=== PATIENT | female | born 1950 | race Caucasian/White ===

== ENCOUNTER → 2016-05-13 | Outpatient (CLI) | payer BC ==
[~2016-05-13] MED LIST: ATV/1 PO; CETI10TA10 PO; CITA20TA9 PO; ESTR1.252 PO; FRRG PO; LOSA100T2 PO; METO1TAB66 PO; MULTTAB58 PO; PRAM1.5T5 PO; PRLSR20 PO; TRAZ50TA35 PO; WARF1TAB PO; XPNIN; [UNRECOGNIZED DRUG - OTHER]; advair diskus
[2016-05-13 17:39] LABS: BASO % 0.8 %; BASO ABS # 0.07 K/uL (0-0.2); COMPLETE YES; EOS % 1.6 %; HEMATOCRIT 43.7 % (37-47); IG% 0.2 %; LYMPH % 37.7 %; LYMPH ABS # 3.38 K/uL (1.2-3.4); MEAN CELL VOLUME 89.7 fL (80-100); MEAN CORPUSCULAR HGB CONC 34.6 g/dl (32-36); MEAN PLATELET VOLUME 10.1 fL (7.4-10.4); MONO % 11.5 %; NEUT % 48.2 %; PLATELET COUNT 256 K/uL (130-400); RED BLOOD COUNT 4.87 M/uL (4.2-5.4); WHITE BLOOD COUNT 8.96 K/uL (4.8-10.8)
[2016-05-13 17:56] LABS: FERRITIN 280.6 ng/ml (8.0-388.0); THYROID STIMULATING HORMONE 1.51 uIu/ml (0.300-4.500)
== END | disposition home or self-care (01) ==
LOC: C.LABMFLN 08:18
PROVIDERS: ATTEND Psychiatry & Neurology Neurology
DX: G25.81 Restless legs syndrome (principal); R25.2 Cramp and spasm

== ENCOUNTER → 2016-06-25 | Outpatient (CLI) | payer BC ==
--- NOTE | 2016-06-25 11:50 | DIAGNOSTIC IMAGING REPORT ---
LUMBAR SPINE MRI HISTORY: MRI lumbar spine LUMBAR PAIN TECHNIQUE: Multiplanar multisequence MRI of the lumbar spine was performed without the use of contrast. COMPARISON: None. FINDINGS: For the purpose of the report the L5-S1 disc space will be located on axial image 27 of 30. Moderate generalized degenerative disc changes throughout. Multilevel bulging discs based on the sagittal images. Technically limited study due to patient body habitus L1-L2: Mild broad-based disc herniation. Mild impact anterior thecal sac. L2-L3: Mild broad-based bulging disc. Mild impact anterior thecal sac. Mild narrowing of the neuroforamina bilaterally L3-L4: Mild broad-based disc bulge. Minimal impact anterior thecal sac L4-L5: Mild broad-based disc herniation. Mild to moderate narrowing of the neuroforamina bilaterally L5-S1: Mild broad-based disc bulge. Minimal impact anterior thecal sac. Neuroforamina are patent bilaterally. IMPRESSION: 1. Limited study technically due to patient body habitus and mild motion artifact. 2. Mild/moderate bulging discs/mild disc herniations throughout virtually all levels of lumbar spine from L1 through L4. 3. No evidence for a high-grade component of spinal stenosis or major disc herniation Electronically signed by: Kendrick Weaver M.D. 06/25/2016 11:49 AM Dictated Date/Time: 06/25/2016 11:42 AM
== END | disposition home or self-care (01) ==
LOC: C.MRI 06-19 10:11 → C.OPENMRI 10:15
PROVIDERS: ATTEND Pain Medicine Interventional Pain Medicine
DX: M54.16 Radiculopathy, lumbar region (principal)

== ENCOUNTER → 2016-10-14 | Outpatient (CLI) | payer BC ==
[2016-10-14 14:33] LABS: HEMATOCRIT 41.8 % (37-47); MEAN CELL VOLUME 91.7 fL (80-100); MEAN CORPUSCULAR HEMOGLOBIN 30.9 pg (25-34); MEAN CORPUSCULAR HGB CONC 33.7 g/dl (32-36); MEAN PLATELET VOLUME 11.1 fL (7.4-10.4); PLATELET COUNT 210 K/uL (130-400); RED BLOOD COUNT 4.56 M/uL (4.2-5.4); WHITE BLOOD COUNT 5.21 K/uL (4.8-10.8)
[2016-10-14 14:36] LABS: COMPLETE YES; EOSINOPHIL % 3.5 %; LARGE GRANULAR LYMPH ABSOLUTE 0.87 K/uL; LARGE GRANULAR LYMPHOCYTE % 16.7 %; LYMPH ABS # 1.32 K/uL (1.2-3.4); LYMPHOCYTE % 25.4 %; NEUTROPHILS % 45.6 %
[2016-10-14 15:29] LABS: ALT/SGPT 37 U/L (12-78); AST/SGOT 25 U/L (15-37); BLOOD UREA NITROGEN 19 mg/dl (7-18); BUN/CREATININE RATIO 22.7 (10-20); CARBON DIOXIDE 28 mmol/L (21-32); CHLORIDE 103 mmol/L (98-107); CREATININE 0.82 mg/dl (0.60-1.20); GLUCOSE 95 mg/dl (70-99); POTASSIUM 4.1 mmol/L (3.5-5.1); SODIUM 139 mmol/L (136-145)
[2016-10-14 15:32] LABS: ALKALINE PHOSPHATASE 49 U/L (45-117); CHOLESTEROL 163 mg/dl (0-200); CHOLESTEROL/HDL RATIO 3.1; HDL CHOLESTEROL 53 mg/dl; LDL CHOLESTEROL CALCULATED 77 mg/dl; TRIGLYCERIDES 164 mg/dl (0-150); VERY LOW DENSITY LIPOPROT CALC 33 mg/dl
== END | disposition home or self-care (01) ==
LOC: C.LABSPEC 13:12
PROVIDERS: ATTEND Family Medicine
DX: I10 Essential (primary) hypertension (principal)

== ENCOUNTER → 2016-12-09 | Outpatient (CLI) | payer BC | END | disposition home or self-care (01) | LOC: C.PATHSPEC 13:20 | PROVIDERS: ATTEND Family Medicine | DX: R31.9 Hematuria, unspecified (principal) ==

== ENCOUNTER 2018-12-21 04:51 | Inpatient (IN) ==
--- NOTE | 2018-11-26 16:27 | PAT Medication Instructions ---
Medication Instructions Date of Service November 26, 2018 Home Medications Medications carbidopa-levodopa [Sinemet] 1 tab PO HS 06/14/18 [History Confirmed 11/23/18] celecoxib 200 mg PO QAM 06/14/18 [History Confirmed 11/23/18] fluticasone propion-salmeterol [Advair HFA] 2 puff INHALATION BID PRN 06/14/18 [History Confirmed 11/23/18] gabapentin 400 mg PO HS 06/14/18 [History Confirmed 11/23/18] losartan-hydrochlorothiazide 1 tab PO QAM 06/14/18 [History Confirmed 11/23/18] metoprolol tartrate 50 mg PO QAM 06/14/18 [History Confirmed 11/23/18] gaheqdtc-epwa-bxq-folic acid [One Daily For Women] 1 tab PO QAM 06/14/18 [History Confirmed 11/23/18] oxycodone-acetaminophen 1 tab PO DIRECTED PRN 06/14/18 [History Confirmed 11/23/18] trazodone 50 mg PO HS 06/14/18 [History Confirmed 11/23/18] albuterol sulfate [ProAir RespiClick] 2 inh INHALATION DAILY PRN 10/01/18 [History Confirmed 11/23/18] baclofen 20 mg PO HS 10/01/18 [History Confirmed 11/23/18] cholecalciferol (vitamin D3) [Vitamin D3] 2,000 unit PO QAM 10/01/18 [History Confirmed 11/23/18] lorazepam 1 mg PO BID 10/01/18 [History Confirmed 11/23/18] citalopram [Celexa] 20 mg PO QPM 11/23/18 [History Confirmed 11/23/18] levocetirizine [Xyzal] 5 mg PO QAM 11/23/18 [History Confirmed 11/23/18] ASK your surgeon for instructions celecoxib 200 mg PO QAM DO NOT take the morning of surgery losartan-hydrochlorothiazide 1 tab PO QAM One Daily For Women 1 tab PO QAM cholecalciferol (vitamin D3) [Vitamin D3] 2,000 unit PO QAM levocetirizine [Xyzal] 5 mg PO QAM Take morning of surgery With a small sip of water, OTHERWISE NOTHING TO EAT OR DRINK AFTER MIDNIGHT: fluticasone propion-salmeterol [Advair HFA] 2 puff INHALATION BID PRN (if needed) metoprolol tartrate 50 mg PO QAM oxycodone-acetaminophen 1 tab PO DIRECTED PRN (okay to take up to 4 hours prior to surgery if needed) albuterol sulfate [ProAir RespiClick] 2 inh INHALATION DAILY PRN (if needed) lorazepam 1 mg PO BID Take evening before surgery carbidopa-levodopa [Sinemet] 1 tab PO HS fluticasone propion-salmeterol [Advair HFA] 2 puff INHALATION BID PRN (if needed) gabapentin 400 mg PO HS oxycodone-acetaminophen 1 tab PO DIRECTED PRN (if needed) trazodone 50 mg PO HS albuterol sulfate [ProAir RespiClick] 2 inh INHALATION DAILY PRN (if needed) baclofen 20 mg PO HS lorazepam 1 mg PO BID citalopram [Celexa] 20 mg PO QPM Other Notes If you have any questions please call us at [phone] or [phone] or [phone] or [phone]
--- NOTE | 2018-11-30 08:35 | Anesthesiology Consultation ---
Date of Service November 30, 2018 Assessment & Plan (1) Encounter for pre-operative examination: -No records re: previous intubations. Chart Review Chart Review: Acceptable Risk for Surgery and Patient seen in Pre Admission Testing Consults Requested none Teaching & Discussion Pre-Anesthesia Teaching/Discussion Notes: Instructed NPO after midnight before surgery, except medications with 15 cc of water. Medication instructions provided according to the PAT guidelines. History Surgery Operation Date: 12/21/18 07:00 Proposed Procedures p Left Total Knee Arthroplasty - Noe Hughes MD Height/Weight Height: 5 ft 9.5 in Weight: 124.9 kg Allergies Allergy/AdvReac Type Severity Reaction Status Date / Time propoxyphene Allergy Severe FACE SWELLS Verified 11/23/18 07:54 Sulfa (Sulfonamide Allergy Severe Shortness Verified 11/23/18 07:54 Antibiotics) Of Breath adhesive Allergy Mild ADHESIVE Verified 11/23/18 07:54 TAPES-RED RASH-SOME TAPES OKAY amoxicillin Allergy Mild RASH Verified 11/23/18 07:54 oxaprozin Allergy Mild RASH Verified 11/23/18 07:54 nitrofurantoin AdvReac gi upsets Verified 11/23/18 08:08 [From Macrobid] Medications Home Medications Medication Instructions Recorded Confirmed Last Taken carbidopa-levodopa [Sinemet] 1 tab PO HS 06/14/18 11/23/18 09/30/18 celecoxib 200 mg PO QAM 06/14/18 11/23/18 10/01/18 fluticasone propion-salmeterol 2 puff INHALATION BID PRN 06/14/18 11/23/18 Unknown [Advair HFA] gabapentin 400 mg PO HS 06/14/18 11/23/18 09/30/18 losartan-hydrochlorothiazide 1 tab PO QAM 06/14/18 11/23/18 10/01/18 metoprolol tartrate 50 mg PO QAM 06/14/18 11/23/18 10/01/18 vgredwno-elxi-lom-folic acid [One 1 tab PO QAM 06/14/18 11/23/18 10/01/18 Daily For Women] oxycodone-acetaminophen 1 tab PO DIRECTED PRN 06/14/18 11/23/18 Unknown trazodone 50 mg PO HS 06/14/18 11/23/18 09/30/18 albuterol sulfate [ProAir 2 inh INHALATION DAILY PRN 10/01/18 11/23/18 Unknown RespiClick] baclofen 20 mg PO HS 10/01/18 11/23/18 09/30/18 cholecalciferol (vitamin D3) 2,000 unit PO QAM 10/01/18 11/23/18 10/01/18 [Vitamin D3] lorazepam 1 mg PO BID 10/01/18 11/23/18 10/01/18 citalopram [Celexa] 20 mg PO QPM 11/23/18 11/23/18 Unknown levocetirizine [Xyzal] 5 mg PO QAM 11/23/18 11/23/18 Unknown Past Medical History Medical History Anxiety Depression Environmental allergies Hypertension Osteoarthritis Restless leg syndrome Exercise / Class Metabolic Activity II 4-5 Yardwork/Stairs/Walk up hill (Gardening all day. Has trouble sitting for long. Able to climb FOS. Denies CP or SOB. ) Past Surgical History Surgical History History of colonoscopy History of laparoscopy for tubal History of total right knee replacement Hx of Achilles tendon repair left Hx of cholecystectomy also took appendix Hx of meniscectomy of right knee Hx of total hysterectomy Hx of tubal ligation Past Anesthesia History No Hx of Anesthesia Complications and No Family Hx of Anesthesia Complications History of PONV No Hx of PONV and No Hx of Motion Sickness Social History Smoking Status: Former smoker Do You Dip or Chew Tobacco: No Smoking End Date: 18 YR AGO Hx Alcohol Use: No Hx Substance Use: No Review of Systems Patient denies chest pain, shortness of breath, dyspnea on exertion, reflux, cough, palpitations. +Joint Pain (Knee, Shoulder) +Wheezing (only when seasonal allergies are acting up) Physical Exam Vital Signs BP: 149/90 P: 56 R: 16 T: 97.8 SPO2: 98% on RA Constitutional + obese ENMT Thyromental Distance: > or= 3.5 Finger Breadths (3.5) Mallampati Class: I Neck normal visual inspection and trachea midline; neck extension not limited Respiratory normal respiratory effort Auscultation: lungs clear to auscultation bilaterally Cardiovascular Rate/Rhythm: regular rate and regular rhythm Heart Sounds: no murmur Vessels: no carotid bruit Neurologic moves all extremities Psychiatric Orientation: alert and oriented x 3 Testing Laboratory Results PT 10.3 Seconds (9.0-12.0) 11/30/18 08:50 INR 1.0 (0.9-1.1) 11/30/18 08:50 APTT 26.8 Seconds (21.0-31.0) 11/30/18 08:50 Blood Type A Negative 11/30/18 08:50 Antibody Screen NEGATIVE 11/30/18 08:50 [facility] 10/22/18 WBC: 5.75 H/H: 14.6/41.7 PLATELETS: 224 SODIUM: 21 POTASSIUM:4.0 CHLORIDE: 103 CO2: 28 BUN: 17 CREATININE: 0.97 GLUCOSE: 104 Electrocardiogram Date: 11/30/18 Findings: + SB @ (56) Chest X-Ray Date: 11/30/18 Findings: + NAD FINDINGS: The bones soft tissues and hemidiaphragms are normal. The cardiomediastinal silhouette is normal. The lungs are clear. The pulmonary vasculature is normal. IMPRESSION: Negative chest.
--- NOTE | 2018-11-30 09:19 | XRay Report ---
XR chest Pre-admission PA/Lat CLINICAL HISTORY: pat preoperative evaluation COMPARISON STUDY: 11/17/2013 FINDINGS: The bones soft tissues and hemidiaphragms are normal. The cardiomediastinal silhouette is n ormal. The lungs are clear. The pulmonary vasculature is normal. IMPRESSION: Negative chest. The above report was generated using voice recognition software. It may contain grammatical, syntax or spelling errors. Electronically signed by: Kendrick Weaver M.D. 11/30/2018 9:18 AM
[2018-11-30 10:51] LABS: Partial Thromboplastin Time 26.8 Seconds (21.0-31.0); Prothrombin Time 10.3 Seconds (9.0-12.0)
--- NOTE | 2018-12-18 08:18 | History and Physical Report ---
DATE OF ADMISSION: 12/21/2018 CHIEF COMPLAINT: Persistent left knee pain and discomfort. HISTORY OF PRESENT ILLNESS: The patient is a 68-year-old female who now presents for surgical treatment of her left knee. She had a long history of knee problems and knee arthritis. She underwent a right knee replacement about 5 years ago and has done extremely well from this. She continues to be bothered by left knee pain and discomfort. We have been treating her with injections every 3 months for the past 5 years. This became less successful. She describes global pain in her knee. The more she walks, the more it hurts. The shots only helped for a couple weeks. Pain is bothering her at nighttime. It is affecting her quality of life and she would like to have her left knee replaced. PAST MEDICAL HISTORY: 1. Hypertension. 2. Anxiety. 3. Obesity with a BMI of 40. 4. Low back pain/sciatica. PAST SURGICAL HISTORY: Previous surgeries include: 1. Right knee replacement done in November of 2013. 2. Hysterectomy. 3. Tubal ligation. 4. Cholecystectomy. ALLERGIES: 1. DARVON. 2. AMOXICILLIN WHICH CAUSED HIVES. No respiratory problems. 3. SULFA. 4. ADHESIVE TAPE. CURRENT MEDICINES: 1. Albuterol. 2. Baclofen. 3. Carbidopa-levodopa/Sinemet. 4. Celebrex. 5. Vitamin D3. 6. Celexa. 7. Estrogen once a day. 8. Fluticasone. 9. Gabapentin 400 mg at nighttime. 10. Levocetirizine 5 mg a day. 11. Lorazepam 1 mg twice daily. 12. Losartan/hydrochlorothiazide 100/12.5 once a day. 13. Metoprolol 50 mg daily. 14. Multivitamin. 15. Bupropion. 16. Percocet p.r.n. 17. Rotigotine transdermal patch. 18. Trazodone 50 mg p.o. at bedtime. SOCIAL HISTORY: A 68-year-old female. She is from [place]. She does not smoke. No significant alcohol intake. FAMILY HISTORY: Noncontributory. REVIEW OF HISTORY: Negative for diabetes, neurologic problems, vascular problems or bleeding disorders. No chest pain or shortness of breath. No history of DVT or PE. No bleeding problems. PHYSICAL EXAMINATION: GENERAL: Physical examination shows a pleasant, healthy appearing, middle-aged female. HEENT: Benign. NECK: Supple, no lymphadenopathy. LUNGS: Clear to auscultation. HEART: Regular rate and rhythm. ABDOMEN: Soft, nontender, nondistended. EXTREMITIES: Grossly neurovascularly intact except as follows: Examination of both knees reveals the patient walks independently. Examination of the right knee reveals well-healed incision. Range of motion 0-120. Good straight leg raise. No significant swelling. Examination of the left knee reveals the patient walks with a bit of a limp on this side. She has got varus alignment to her knee. Small knee effusion. Moderate to large soft tissue envelope. Range of motion is 5 degrees short of full extension to 120 degrees of flexion. There is no gross instability. No pain with hip motion. She is neurologically intact. X-RAYS: X-rays of the left knee reviewed. It shows advanced left knee tricompartment DJD. She has extensive disease in all 3 compartments, most severe in the medial side. She has got osteophytes both medially and laterally. ASSESSMENT: A 68-year-old white female, 5 years out from right knee replacement with advanced left knee degenerative joint disease. She has failed conservative treatment and would like to have her left knee replaced. PLAN: We are going to take her to the operating room and do a left total knee replacement. The risks and benefits of this procedure were explained to the patient including but not limited to DVT, PE, , infection, neurological injury, vascular injury, bleeding problem, pain, limited range of motion, stiffness, failure to relieve her symptoms, incomplete relief of symptoms, need for further surgery in future, fracture, leg length inequality, nerve palsy, etc. The patient understands and desires to proceed. Informed consent was obtained. We talked about taking her metoprolol the morning of surgery. She is planning to be discharged home using [facility] home health program. She describes AN ALLERGY TO PENICILLIN, but has had Ancef before and has done okay. We will give her Ancef preoperatively. We will plan on DVT prophylaxis including thigh-high TEDs, SCDs, and aspirin twice a day.
[2018-12-21] MEDS ORDERED: METOCLOPRAMIDE HCL 10 MG TABLET PO SCH (06:00)
[2018-12-21] MEDS ORDERED: CEFAZOLIN 3000MG 72.5 ML IV SCH (06:00)
[2018-12-21] MEDS ORDERED: LR 500ML BOLUS, THEN 15ML/HR IV SCH (06:00)
[2018-12-21] MEDS ORDERED: GABAPENTIN 600 MG DOSE PO SCH (06:00)
[2018-12-21] MEDS ORDERED: FAMOTIDINE 20 MG TAB PO SCH (06:00)
[2018-12-21] MEDS ORDERED: ACETAMINOPHEN 500 MG TAB PO SCH (06:00)
[2018-12-21] MEDS ORDERED: SCOPOLAMINE 1.5 MG TDSY TD SCH (06:00)
[2018-12-21] MEDS ORDERED: LR 60ML/HR IV SCH (06:00)
[2018-12-21] MEDS ORDERED: BUPIVACAINE LIPOSOME/PF 266 MG, BUPIVACAINE/EPINEPHRINE 50 ML, SODIUM CHLORIDE 0.9% 30 ... INFIL SCH (06:00)
[2018-12-21] MEDS ORDERED: fentaNYL citrate 100 MCG/2 ML VIAL ONE (06:25)
[2018-12-21] MEDS ORDERED: MIDAZOLAM HCL 1 MG/ML 2ML VIAL ONE ×3 (06:25→07:04)
[2018-12-21] MEDS ORDERED: TRANEXAMIC ACID 1,000 MG **IV Intra-op IV SCH (06:30)
[2018-12-21] MEDS ORDERED: SODIUM CHLORIDE 0.9% PF 50 ML VIAL ONE (06:33)
[2018-12-21] MEDS ORDERED: ROPIVACAINE 0.5% 5 MG/ML 30 ML VIAL ONE (06:33)
[2018-12-21] MEDS ORDERED: BUPIVACAINE 0.25% 30 ML VIAL ONE (06:33)
[2018-12-21] MEDS ORDERED: BACITRACIN INJ 50,000 UNIT VIAL ONE (06:33)
[2018-12-21] MEDS ORDERED: BUPIVACAINE 0.5 % 5 MG/1 ML PF 10ML VIAL ONE (06:33)
[2018-12-21] MEDS ORDERED: BUPIVACAINE LIPOSOME 1.3% 266 MG/20 ML VIAL ONE (06:33)
[2018-12-21] MEDS ORDERED: EPINEPHrine INJ 1 MG/ML AMP ONE (06:34)
--- NOTE | 2018-12-21 06:50 | History & Physical Bridge Note ---
Date of Service December 21, 2018 History & Physical Bridge Note I have examined the patient, reviewed the History & Physical and in the interval since the performance of the History & Physical I have noted the following changes of clinical significance: no changes noted
[2018-12-21] MEDS ORDERED: ePHEDrine sulfate 50 MG/ML AMP IV PRN (07:05)
[2018-12-21] MEDS ORDERED: ATROPINE SULFATE 0.1 MG/ML 10ML SYR IV PRN (07:05)
[2018-12-21] MEDS ORDERED: PROPOFOL IV EMULSION 10 MG/ML 20 ML VIAL IV ONE (07:08)
[2018-12-21] MEDS ORDERED: PHENYLEPHRINE HCL 10 MG/ML VIAL ONE (07:34)
--- NOTE | 2018-12-21 08:40 | Post Operative Brief Note ---
PG Immediate Post Op with CF Date of Surgery December 21, 2018 Pre & Post Diagnosis Operation Date: 12/21/18 07:00 Pre-Op Diagnosis: Left Knee Advanced Degenerative Joint Disease Post-Op Diagnosis: Left Knee Advanced Degenerative Joint Disease Procedure Operation Date: 12/21/18 07:00 Actual Procedures p Left Total Knee Arthroplasty(Left) - Noe Hughes MD Surgeon Noe Hughes MD Adolescent Medicine Specialist Stacey, PAC Estimated Blood Loss 50 Findings Consistent with Post-Op Diagnosis Fluids 1500 cc Specimens Specimen Description: A. Left Knee Bone and Tissue Drains Guevara Catheter (A 16 Stateless guevara catheter was inserted by JOSEFA Redmond, with assist of OR staff and Anesthesia without difficulty, clear yellow urine obtained, output to be monitored by Anesthesia.) Anesthesia Type Spinal MAC Complications none Disposition Accompanied Patient To Recovery: No Disposition: Recovery Room
--- NOTE | 2018-12-21 09:03 | XRay Report ---
XR knee LT 2V routine CLINICAL HISTORY: Surgical Post Op COMPARISON: 09/27/2018 DISCUSSION: There are postsurgical changes of a total left knee arthroplasty, and patellar resurfacin g. The femoral and tibial components appear well seated. There are overlying skin violeta. There is a ir within soft tissues consistent with recent surgery. IMPRESSION: Postsurgical changes of a total left knee arthroplasty. Electronically signed by: Tan Calderón M.D. 12/21/2018 9:01 AM
--- NOTE | 2018-12-21 09:04 | Operative Report ---
DATE OF OPERATION: 12/21/2018 SURGEON: Noe Hughes MD PAINT SPRAYER SANDBLASTER: JOSEFA Green PREOPERATIVE DIAGNOSIS: Left knee degenerative joint disease. POSTOPERATIVE DIAGNOSIS: Left knee degenerative joint disease. PROCEDURE PERFORMED: Left cemented posterior stabilized total knee arthroplasty. COMPLICATIONS: None. ESTIMATED BLOOD LOSS: 50 mL. FLUID REPLACEMENT: 1500 mL crystalloid fluid replacement. TOURNIQUET TIME: 57 minutes at 300 mmHg. ANESTHESIA: Spinal with adductor canal block. DRAINS: None. SPECIMENS: Left knee sent for pathology. OPERATIVE INDICATIONS: The patient is a 68-year-old female who has had a long history of knee problems. She underwent a right knee replacement 5 years ago. I have been treating her conservatively over the past 5 years with injections and medicines. This became less successful over time. The patient elected to proceed with total knee arthroplasty. OPERATIVE FINDINGS: Operative findings revealed advanced left knee DJD. She had extensive grade 4 dahi-zu-bhzs disease of the medial as well as patellofemoral compartments. She had varus deformity to her knee with large knee joint effusion. OPERATIVE IMPLANTS: Operative implants consisted of: 1. A Biomet Vanguard size 65 left posterior stabilized femoral component. 2. A Biomet size 71 tibial tray. 3. A 10 mm posterior stabilized polyethylene insert. 4. A 31 x 8 all poly patella. OPERATIVE PROCEDURE: The patient was taken to the operating room, identified and placed on the operating table in supine position. All contact areas were appropriately padded. IV antibiotics provided by anesthesia team. Spinal anesthetic and adductor canal block had been provided in the holding area. Devries catheter was placed in sterile fashion. Left thigh tourniquet was then placed and left lower extremity was then prepped and draped in usual sterile fashion. Left leg was elevated and exsanguinated with an Esmarch and tourniquet was placed at 300 mmHg. An anterior approach to the left knee was then performed through a longitudinal incision centered over the patella. Sharp dissection was carried through subcutaneous tissues down to the level of the extensor mechanism. A medial parapatellar arthrotomy incision was made. Some subperiosteal dissection was carried out medially. The fat pad resected from beneath the patellar tendon. The lateral patellofemoral ligament was released. The patella was everted and knee was flexed. The osteophytes were taken off the distal femur. The ACL and PCL were then released from the distal femur and the tibia subluxated anteriorly. External tibial alignment jig was then placed in the anterior face of the tibia and adjusted 16 mm medially. Proximal tibial cut was made to remove about a millimeter of bone from the most deficient aspect of the medial tibial plateau. Some osteophytes were taken off medial and posteromedially. Tibia sized to a size 71. Attention was then drawn to the femur. The distal femur was entered with a sharp drill. Intramedullary canal was suctioned. A left 5-degree valgus cutting guide was placed. Distal femoral cutting block was pinned in place. Distal femoral cut was made to take an additional 3 mm of bone off the distal femur. The femur was then sized to a size 65. We did downsize this slightly. The AP cutting block was pinned parallel to the epicondylar axis, which was 5 degrees of external rotation. The anterior cut, anterior chamfer, posterior cut, posterior chamfer cuts were made. Box cutting guide was placed and adjusted slightly lateral and box cut was made. The knee was flexed. The remnants of the medial and lateral menisci were excised. The osteophytes were taken off the posterior aspect of the femur. Trial femoral component was placed. Tibial tray was pinned in maximum external rotation, and the drill and stem punch were used to create defect in proximal tibia for the tibial tray. The knee was then trialed and a 10 mm insert fit most appropriately. Attention was then drawn to patella. The patella was cleaned of all soft tissues. Patella thickness measured 24 mm in thickness, it was cut down to about 15. It was sized to a size 31 patella. Lug holes were drilled for 31 patella. Lateral osteophyte was removed. Patella button was placed. Knee was taken through range of motion, patella tracked nicely with no thumbs test. Attention was then drawn toward placement of permanent components. All trial components were removed. Bone plug was placed in distal femur to limit blood loss. A double batch of Palacos G cement was mixed. A Biomet Vanguard size 65 left posterior stabilized femoral component, size 71 tibial tray, a 10 mm posterior stabilized polyethylene insert, and a 31 x 8 all poly patella then cemented in place. Knee was brought down to full extension until cement hardened. A final cement check was then performed. Pericapsular tissues were injected with a total of 100 mL of combination of 20 mL of Exparel, 30 mL of normal saline, 50 mL of 0.25% Marcaine with epinephrine. The patient did receive 1 gram of tranexamic acid. The tourniquet was then let down for final tourniquet time of 57 minutes. Hemostasis was assured with use of electrocautery. The wound was once again irrigated. The extensor mechanism was then closed with combination of #1 PDS suture and #1 Vicryl suture in a [id number] fashion. Extensor mechanism was checked and found to be intact. The subcutaneous tissue was then closed with #2 Dexon suture in a buried interrupted fashion. Skin was closed with skin violeta. Leg was then cleaned, dried and a sterile dressing of Xeroform, 4 x 4, sterile cast padding and Saravanan bandage were applied. The patient was then transferred to the recovery room in stable condition. The patient tolerated the procedure well with no complication. All needle and sponge counts were correct at the end of the operation. I attest to the content of the Intraoperative Record and any orders documented therein. Any exception s are noted below.
--- NOTE | 2018-12-21 09:34 | Anesthesiology Progress Note ---
Date of Service December 21, 2018 Anesthesia Post Procedure Vital Signs Vital Signs: Temp Pulse Pulse Resp BP Pulse Ox 12/21/18 09:25 56 L 14 152/90 H 98 12/21/18 09:15 63 13 144/78 H 98 12/21/18 09:05 64 12 113/70 97 12/21/18 08:55 59 L 16 129/73 98 12/21/18 08:46 36.7 C 62 20 108/65 98 12/21/18 05:52 36.6 C 66 20 153/86 H 95 Transfer of Care Handoff Completed per policy Notes Mental Status: alert / awake / arousable and participated in evaluation Patient Amnestic to Procedure: Yes Nausea / Vomiting: adequately controlled Pain: adequately controlled Airway Patency, RR, SpO2: stable & adequate BP & HR: stable & adequate Hydration State: stable & adequate Neuraxial Anesthesia: was administered and sensory block is resolving Anesthetic Complications: no major complications apparent
[2018-12-21] MEDS ORDERED: METOCLOPRAMIDE HCL INJ 5 MG/ML 2 ML VIAL IV PRN (10:29)
[2018-12-21] MEDS ORDERED: ALUMINUM/MAGNESIUM SUSP 30 ML UDC PO PRN (10:29)
[2018-12-21] MEDS ORDERED: MULTIVITAMIN TAB PO SCH (10:29)
[2018-12-21] MEDS ORDERED: MAGNESIUM HYDROXIDE SUSP 30 ML UDC PO PRN (10:29)
[2018-12-21] MEDS ORDERED: ALBUTEROL HFA 8 GM INHALER INH SCH (10:29)
[2018-12-21] MEDS ORDERED: HYDROmorphone INJ 0.5 MG/0.5 ML SYR IV PRN (10:29)
[2018-12-21] MEDS ORDERED: BISACODYL 10 MG SUPP PR PRN (10:29)
[2018-12-21] MEDS ORDERED: ONDANSETRON INJ 2 MG/ML 2 ML VIAL IV PRN (10:29)
[2018-12-21] MEDS ORDERED: NALOXONE HCL 0.4 MG/1 ML VIAL/CARP IV PRN (10:29)
[2018-12-21] MEDS ORDERED: ALBUTEROL HFA INHALER 8.5 GM INH PRN (10:45)
[2018-12-21] MEDS: SODIUM CHLORIDE 0.9% 1000ML 1,000 ML IV SCH ×2 (11:04→19:02)
[2018-12-21] MEDS: DOCUSATE SODIUM 100 MG CAP PO SCH ×2 (11:05→20:49)
[2018-12-21] MEDS: LORazepam 1 MG TAB PO SCH ×2 (11:06→20:49)
[2018-12-21] MEDS: LOSARTAN/HCTZ 50/12.5MG TAB PO SCH (11:06)
[2018-12-21] MEDS: METOPROLOL TARTRATE 50 MG TAB PO SCH (11:06)
[2018-12-21] MEDS: MULTIVITAMIN TAB PO SCH (11:06)
[2018-12-21] MEDS: KETOROLAC TROMETHAMINE 15 MG/ML VIAL IV SCH ×3 (11:07→22:13)
[2018-12-21] MEDS: CHOLECALCIFEROL 1,000 UNITS TAB PO SCH (11:08)
[2018-12-21] MEDS: TAPENTADOL HCL ER 50 MG TABCR PO SCH ×2 (11:15→20:50)
[2018-12-21] MEDS: ASPIRIN 81 MG ECTAB PO SCH ×2 (11:31→20:49)
[2018-12-21] MEDS: ACETAMINOPHEN 500 MG TAB PO SCH ×2 (13:34→21:15)
[2018-12-21] MEDS ORDERED: TRANEXAMIC ACID 1,000 MG in 0.9 % SODIUM CHLORIDE 100 ML IV SCH (14:45)
[2018-12-21] MEDS: CEFAZOLIN 2000MG 2,000 MG/15 ML SYR IV SCH ×2 (15:03→22:12)
[2018-12-21] MEDS: CHECK SCOPOLAMINE PATCH PLACEMENT SCH (15:42)
[2018-12-21] MEDS ORDERED: ADVAIR INH PRN (15:55)
[2018-12-21] MEDS: ASCORBIC ACID 500 MG TAB PO SCH (16:50)
[2018-12-21] MEDS: FERROUS GLUCONATE 324 MG TAB PO SCH (16:50)
[2018-12-21] MEDS: GABAPENTIN 400 MG CAP PO SCH (20:49)
[2018-12-21] MEDS: TRAZODONE HCL 50 MG TAB PO SCH (20:49)
[2018-12-21] MEDS: SENNA 8.6 MG TAB PO SCH (20:49)
[2018-12-21] MEDS: CARBIDOPA/LEVODOPA 25-250 1 EA TAB PO SCH (20:49)
[2018-12-21] MEDS: CITALOPRAM 20 MG TAB PO SCH (20:49)
--- NOTE | 2018-12-21 20:49 | Progress Note ---
DATE: 12/21/2018 SUBJECTIVE: A 68-year-old white female postop from a left knee replacement. She is doing well. She just has a little bit of pain. Got some pain medicine and doing better. No chest pain or shortness of breath. Not feeling dizzy or lightheaded. OBJECTIVE: VITAL SIGNS: Temperature is 36.6. Vital signs stable. GENERAL: A pleasant middle-aged female sitting up in her bedside chair, looks comfortable. LUNGS: Clear to auscultation. HEART: Has regular rate and rhythm. ABDOMEN: Soft, nontender, nondistended. EXTREMITIES: Grossly neurovascularly intact except as follows: Examination of the left lower extremity reveals the dressing to be clean, dry and intact. She can dorsiflex and plantarflex her foot appropriately. She is neurologically intact. She can do a straight leg raise. X-RAYS: X-ray of the left knee from recovery room is reviewed. It shows a cemented posterior stabilized total knee arthroplasty. Components looked to be in good position. No signs of problems. ASSESSMENT: A 68-year-old white female postoperative from a left knee replacement, doing well. Pain is controlled. She is neurologically intact. PLAN: 1. DVT prophylaxis including thigh-high TEDs, SCDs, and aspirin twice a day. 2. PT/OT. Weight bear as tolerated. Left total knee protocol. 3. Pain control, doing well with current pain regimen. 4. IV antibiotics x24 hours. 5. Disposition: Plan to discharge to home with some home health once adequately recovered and medically stable.
[2018-12-21] MEDS: BACLOFEN 20 MG TAB PO SCH (20:50)
[2018-12-22] MEDS: CHECK SCOPOLAMINE PATCH PLACEMENT SCH (00:13)
[2018-12-22] MEDS: KETOROLAC TROMETHAMINE 15 MG/ML VIAL IV SCH ×4 (04:26→21:52)
[2018-12-22] MEDS: ACETAMINOPHEN 500 MG TAB PO SCH ×3 (05:44→21:52)
[2018-12-22 05:50] LABS: Hematocrit (blood only) 36.3 % (37-47); Hemoglobin 12.1 g/dL (12.0-16.0); Mean Corpuscular Hemoglobin 29.7 pg (25-34); Mean Corpuscular Hgb Conc 33.3 g/dL (32-36); Mean Corpuscular Volume 89.2 fL (80-100); Mean Platelet Volume 10.4 fL (7.4-10.4); Platelet Count 175 K/uL (130-400); RDW Coefficient of Variation 14.3 % (11.5-14.5); RDW Standard Deviation 47.2 fL (36.4-46.3); Red Blood Count 4.07 M/uL (4.2-5.4); White Blood Count 7.85 K/uL (4.8-10.8)
[2018-12-22 06:22] LABS: BUN Creatinine Ratio 15.3 (10-20); Calcium 8.2 mg/dl (8.5-10.1); Creatinine Clr Calc Pharmacy 85.6 ml/min; Est GFR (African American) 75.7; Est GFR (Non-African American) 65.3; Potassium 3.7 mmol/L (3.5-5.1)
--- NOTE | 2018-12-22 08:21 | Anesthesiology Progress Note ---
Date of Service December 22, 2018 Anesthesia Post Procedure Vital Signs Vital Signs: Temp Pulse Pulse Pulse Pulse Resp BP 12/22/18 07:36 37.2 C 71 18 12/22/18 04:00 36.6 C 64 18 138/75 12/21/18 23:23 37.5 C 68 18 151/82 H 12/21/18 19:10 36.6 C 59 L 18 12/21/18 12:53 36.4 C L 56 L 16 12/21/18 11:55 36.2 C L 56 L 16 126/81 12/21/18 10:59 50 L 16 136/69 12/21/18 10:25 50 L 16 151/65 H 12/21/18 09:55 36.4 C L 53 L 16 12/21/18 09:35 36.1 C L 53 L 17 143/83 H 12/21/18 09:25 56 L 14 152/90 H 12/21/18 09:15 63 13 144/78 H 12/21/18 09:05 64 12 113/70 12/21/18 08:55 59 L 16 129/73 12/21/18 08:46 36.7 C 62 20 108/65 BP Pulse Ox 12/22/18 07:36 133/80 91 12/22/18 04:00 94 12/21/18 23:23 94 12/21/18 19:10 137/83 96 12/21/18 12:53 126/77 95 12/21/18 11:55 96 12/21/18 10:59 100 12/21/18 10:25 99 12/21/18 09:55 145/83 H 99 12/21/18 09:35 99 12/21/18 09:25 98 12/21/18 09:15 98 12/21/18 09:05 97 12/21/18 08:55 98 12/21/18 08:46 98 Pain Intensity Left Knee: Pain Intensity: 1 Notes Mental Status: alert / awake / arousable and participated in evaluation Patient Amnestic to Procedure: Yes Nausea / Vomiting: adequately controlled Pain: adequately controlled Airway Patency, RR, SpO2: stable & adequate BP & HR: stable & adequate Hydration State: stable & adequate Neuraxial Anesthesia: was administered and sensory block resolved Anesthetic Complications: no major complications apparent and Pt Satisfied with anesthetic care
[2018-12-22] MEDS: FERROUS GLUCONATE 324 MG TAB PO SCH ×2 (08:23→17:58)
[2018-12-22] MEDS: DOCUSATE SODIUM 100 MG CAP PO SCH ×2 (08:24→21:51)
[2018-12-22] MEDS: ASCORBIC ACID 500 MG TAB PO SCH ×2 (08:24→17:58)
[2018-12-22] MEDS: LORazepam 1 MG TAB PO SCH ×2 (08:24→21:51)
[2018-12-22] MEDS: ASPIRIN 81 MG ECTAB PO SCH ×2 (08:25→21:51)
[2018-12-22] MEDS: LOSARTAN/HCTZ 50/12.5MG TAB PO SCH (08:25)
[2018-12-22] MEDS: TAPENTADOL HCL ER 50 MG TABCR PO SCH ×2 (08:25→21:51)
[2018-12-22] MEDS: MULTIVITAMIN TAB PO SCH (08:25)
[2018-12-22] MEDS: METOPROLOL TARTRATE 50 MG TAB PO SCH (08:25)
[2018-12-22] MEDS: CHOLECALCIFEROL 1,000 UNITS TAB PO SCH (08:26)
--- NOTE | 2018-12-22 08:37 | Progress Note ---
DATE: 12/22/2018 SUBJECTIVE: A 68-year-old white female postop day 1 from a left knee replacement. She is doing pretty well. A little bit more pain last night, but got some pain medicine, doing better this morning. No chest pain or shortness of breath. Not feeling dizzy or lightheaded. OBJECTIVE: VITAL SIGNS: Temperature 37.2. Vital signs stable. GENERAL: Shows a pleasant, middle-aged female. She is sitting up in bed and just about to start breakfast. She looks comfortable. EXTREMITIES: Examination of the left leg reveals the leg to be well aligned. Dressing is clean, dry and intact. She can dorsiflex and plantarflex her foot appropriately. She is neurologically intact. LABORATORY DATA: Hemoglobin 12.1. Hematocrit 36.3. Electrolytes are stable. ASSESSMENT: A 68-year-old white female postoperative day 1 from left knee replacement, doing pretty well. Pain is controlled. She is neurologically intact. PLAN: 1. DVT prophylaxis including thigh-high TEDs, SCDs, and aspirin twice a day. 2. PT/OT. Weight bear as tolerated. Left total knee protocol. 3. Pain control, doing pretty well with current pain regimen. 4. Disposition: She is planning to be discharged home with some home health once adequately recovered and medically stable.
[2018-12-22] MEDS: OXYCODONE HCL IR 5 MG TAB (IMMEDIATE RELEASE) PO PRN (10:55)
[2018-12-22] MEDS: CARBIDOPA/LEVODOPA 25-250 1 EA TAB PO SCH (19:17)
[2018-12-22] MEDS: TRAZODONE HCL 50 MG TAB PO SCH (21:51)
[2018-12-22] MEDS: GABAPENTIN 400 MG CAP PO SCH (21:51)
[2018-12-22] MEDS: CITALOPRAM 20 MG TAB PO SCH (21:51)
[2018-12-22] MEDS: BACLOFEN 20 MG TAB PO SCH (21:51)
[2018-12-22] MEDS: SENNA 8.6 MG TAB PO SCH (21:52)
[2018-12-23] MEDS: OXYCODONE HCL IR 5 MG TAB (IMMEDIATE RELEASE) PO PRN ×2 (03:52→10:12)
[2018-12-23] MEDS: ACETAMINOPHEN 500 MG TAB PO SCH (05:57)
[2018-12-23] MEDS: KETOROLAC TROMETHAMINE 15 MG/ML VIAL IV SCH (05:58)
[2018-12-23 06:40] VITALS: BP 123/75; PULSE 68; TEMP 98.4; O2SAT 91
[2018-12-23] MEDS: ASPIRIN 81 MG ECTAB PO SCH (07:56)
[2018-12-23] MEDS: DOCUSATE SODIUM 100 MG CAP PO SCH (07:56)
[2018-12-23] MEDS: ASCORBIC ACID 500 MG TAB PO SCH (07:56)
[2018-12-23] MEDS: FERROUS GLUCONATE 324 MG TAB PO SCH (07:56)
[2018-12-23] MEDS: METOPROLOL TARTRATE 50 MG TAB PO SCH (07:57)
[2018-12-23] MEDS: MULTIVITAMIN TAB PO SCH (07:57)
[2018-12-23] MEDS: LOSARTAN/HCTZ 50/12.5MG TAB PO SCH (07:57)
[2018-12-23] MEDS: CHOLECALCIFEROL 1,000 UNITS TAB PO SCH (07:58)
[2018-12-23] MEDS: LORazepam 1 MG TAB PO SCH (08:00)
[2018-12-23] MEDS: TAPENTADOL HCL ER 50 MG TABCR PO SCH (08:00)
--- NOTE | 2018-12-23 08:50 | Progress Note ---
DATE: 12/23/2018 SUBJECTIVE: A 68-year-old white female postop day 2 from right knee replacement. She is doing pretty well. Pain is controlled. Therapy has gone pretty well. No chest pain or shortness of breath. Not feeling dizzy or lightheaded. OBJECTIVE: VITAL SIGNS: Temperature 36.9. Vital signs stable. GENERAL: Physical examination shows a pleasant, middle-aged female. She is sitting up in her bedside chair, looks comfortable. EXTREMITIES: Examination of the left leg reveals the dressing to be clean, dry and intact. She can dorsiflex and plantarflex her foot appropriately. She is neurologically intact. ASSESSMENT: A 68-year-old white female postop day 2 from a left knee replacement, doing pretty well. Pain is controlled. PLAN: 1. DVT prophylaxis including thigh-high TEDs, SCDs, and aspirin twice a day. 2. PT/OT. Weight bear as tolerated. Left total knee protocol. 3. Pain control, doing well with current pain regimen. 4. Disposition: Plan to discharge to home with some home health later today.
--- NOTE | 2018-12-29 11:32 | Discharge Summary ---
ADMITTING PHYSICIAN AND SURGEON: Dr. Noe Hughes. ADMITTING DIAGNOSIS: Left knee degenerative joint disease. SURGERY PERFORMED: Left total knee arthroplasty. SECONDARY DIAGNOSES: Hypertension, anxiety, obesity, low back pain, sciatica. CONSULTS: None obtained. HISTORY AND PHYSICAL EXAMINATION: Well documented in the patient's chart. HOSPITAL COURSE: The patient was admitted on 12/21/2018 underwent total knee arthroplasty, tolerated the procedure well. There were no complications. She was transferred to the PACU postoperatively and later to the orthopedic floor for further care. She was given Ancef for antibiotic prophylaxis, SABAS stockings, SCDs and aspirin for DVT prophylaxis. Hemoglobin, hematocrit and vital signs were monitored during her hospital stay and remained stable. She did not require any blood transfusions. There were no complications. On postoperative day 2 she was tolerating a regular diet, pain was controlled with oral pain medicine. She was participating in physical therapy. Postop day 2, she was discharged home, set up with home health services. She was given printed discharge instructions as well as new prescriptions for extra strength Tylenol, aspirin, and oxycodone. Continue her home medicines with the exception of Percocet which she was told to stop. Continue physical therapy, weightbearing as tolerated, SABAS stockings. Follow up approximately 2 weeks or sooner if there are any problems or concerns.
== END 2018-12-23 10:34 | disposition home health service (06) | DRG 470 ==
LOC: ASU 04:51 → 3E 08:44